=== PATIENT | female | born 1995 | race African-American/Black ===

== ENCOUNTER 2019-07-08 05:52 | Emergency (ER) | payer MEDICAID, MEDICARE ==
[~2019-07-08] VITALS: Ht 154.9 cm; Wt 55.0 kg
[~2019-07-08 05:52] MED LIST: FERR-43 PO; PREN-88 PO
[2019-07-08 05:59] VITALS: BP 114/75
[2019-07-08] MEDS ORDERED: AZITHROMYCIN 500 MG TABLET PO ONE (06:15)
[2019-07-08] MEDS ORDERED: CEFTRIAXONE SODIUM 250 MG/VIAL IM ONE (06:15)
[2019-07-08] MEDS ORDERED: LIDOCAINE HCL 1% 20ML VIAL (Pyxis) INJ INFIL ONE (07:15)
[2019-07-10 04:15] LABS: CHLAMYDIA TRACHOMATIS NAA Negative (Negative); NEISSERIA GONORRHOEAE NAA Negative (Negative)
== END 2019-07-08 08:06 | disposition home or self-care (01) ==
LOC: ER 05:52
DX: A64 Unspecified sexually transmitted disease (principal); R30.0 Dysuria; Z79.899 Other long term (current) drug therapy
CPT/HCPCS: 87491; 87591; 96372; 99283; J0696

== ENCOUNTER 2020-09-15 18:16 | Emergency (ER) | payer MEDICAID ==
[~2020-09-15] VITALS: Ht 154.9 cm; Wt 54.0 kg
[2020-09-15] MEDS ORDERED: LIDOCAINE HCL 1% 20ML VIAL (Pyxis) INJ INFIL ONE (20:15)
[2020-09-15] MEDS ORDERED: AZITHROMYCIN 500 MG TABLET PO ONE (20:15)
[2020-09-15] MEDS ORDERED: CEFTRIAXONE SODIUM 250 MG/VIAL IM ONE (20:15)
[2020-09-15 20:20] LABS: CLARITY URINE CLEAR (CLEAR); COLOR URINE YELLOW (YELLOW); KETONES URINE TRACE (NEGATIVE); LEUKOCYTE ESTERASE URINE TRACE (NEGATIVE); NITRITE URINE NEGATIVE (NEGATIVE); OCCULT BLOOD URINE NEGATIVE (NEGATIVE); PH URINE 7.5 (4.5-8.0); PROTEIN URINE NEGATIVE (NEGATIVE); SPECIFIC GRAVITY URINE 1.028 (1.005-1.030)
[2020-09-15 20:38] VITALS: BP 122/88
[2020-09-18 15:06] LABS: NEISSERIA GONORRHOEAE NAA Positive (Negative)
== END 2020-09-15 20:46 | disposition home or self-care (01) ==
LOC: ER 18:34
DX: Z20.2 Contact with and (suspected) exposure to infections with a predominantly sexual mode of transmission (principal); Z79.899 Other long term (current) drug therapy
CPT/HCPCS: 81003; 81025; 87491; 87591; 96372; 99283; J0696; J3490

== ENCOUNTER 2023-03-13 10:22 | Emergency (ER) | payer MEDICAID ==
[~2023-03-13] VITALS: Ht 154.9 cm; Wt 52.0 kg
[2023-03-13 10:32] VITALS: BP 115/67
[2023-03-13] MEDS ORDERED: CEFTRIAXONE SODIUM 500 MG/VIAL IM ONE (12:00)
[2023-03-13 12:03] LABS: CLARITY URINE CLEAR (CLEAR); COLOR URINE YELLOW (YELLOW); KETONES URINE NEGATIVE (NEGATIVE); LEUKOCYTE ESTERASE URINE TRACE (NEGATIVE); NITRITE URINE NEGATIVE (NEGATIVE); OCCULT BLOOD URINE TRACE (NEGATIVE); PROTEIN URINE NEGATIVE (NEGATIVE); SPECIFIC GRAVITY URINE 1.013 (1.005-1.030)
[2023-03-13] MEDS ORDERED: METR70GE5 VG (13:48)
[2023-03-13] MEDS ORDERED: DOXY100C5 MT (13:54)
[2023-03-13] MEDS ORDERED: LIDOCAINE HCL 1% 20ML VIAL (Pyxis) INJ INFIL ONE (14:00)
[2023-03-13] MEDS ORDERED: CEFTRIAXONE SODIUM 500 MG/VIAL IM NR (14:00)
[2023-03-16 05:10] LABS: NEISSERIA GONORRHOEAE NAA Negative (Negative)
== END 2023-03-13 15:11 | disposition home or self-care (01) ==
LOC: ER 10:22
DX: N89.8 Other specified noninflammatory disorders of vagina (principal); A64 Unspecified sexually transmitted disease
CPT/HCPCS: 81003; 81025; 87086; 87210; 87491; 87591; 96372; 99283; J0696; J3490; Z7610

== ENCOUNTER 2023-06-28 08:03 | Emergency (ER) | payer SELFPAY ==
[~2023-06-28] VITALS: Ht 154.9 cm; Wt 54.0 kg
[~2023-06-28 08:03] MED LIST changes: +DOXY100C5 MT; +METR70GE5 VG
[2023-06-28 08:31] VITALS: BP 130/92; PULSE 98; RESP 16; TEMP 98.9; O2SAT 100
[2023-06-28] MEDS ORDERED: BISM262T15 MT (09:34)
== END 2023-06-28 10:07 | disposition home or self-care (01) ==
LOC: ER 08:03
DX: K52.9 Noninfective gastroenteritis and colitis, unspecified (principal)
CPT/HCPCS: 81025; 99282